=== PATIENT | male | born 1990 | race Two or more races ===

== ENCOUNTER 2017-12-24 11:30 | Emergency (ER) | payer OTHER ==
[~2017-12-24] VITALS: Ht 175.3 cm; Wt 77.1 kg
[2017-12-24] MEDS ORDERED: KETOROLAC TROMETHAMINE INJ 60 MG/2 ML VIAL IM ONE (13:00)
--- NOTE | 2017-12-24 13:01 | NUR ---
PT REFUSED PAIN MEDICINE. JOSIAH FONG NOTIFIED
[2017-12-24 13:21] LABS: APPEARANCE,URINE Clear (CLEAR); BILIRUBIN,URINE Negative (NEGATIVE); BLOOD, URINE Large Ery/uL (NEGATIVE); COLOR,URINE Yellow (YELLOW); KETONES,URINE Negative (NEGATIVE); LEUKOCYTE ESTERASE ,URINE Negative (NEGATIVE); NITRITE, URINE Negative (NEGATIVE); PROTEIN,URINE Trace mg/dl (NEGATIVE); UGLUCOSE Negative (NEGATIVE); UROBILINOGEN,URINE 0.2 EU/dL (0.2)
[2017-12-24 13:29] LABS: BACTERIA,URINE Few /HPF (None Seen); RBC,URINE 51-80 /HPF (0-2); SQUAMOUS EPITHELIAL CELL,UR Few /HPF (None Seen); WBC,URINE 0-2 /HPF (0-3)
[2017-12-24 13:30] LABS: MUCUS,URINE Few /LPF (None Seen)
[2017-12-24] MEDS ORDERED: CEFTRIAXONE 1 G VIAL IM ONE (13:30)
[2017-12-24] MEDS ORDERED: CEFTRIAXONE 1 G VIAL ONE (13:50)
[2017-12-24] MEDS ORDERED: LIDOCAINE /MPF 1% VIAL 5 ML VIAL ONE (13:51)
[2017-12-24] MEDS ORDERED: CEFTRIAXONE 500 MG VIAL ONE (13:52)
[2017-12-24 15:35] VITALS: BP 128/70
--- NOTE | 2017-12-24 15:36 | NUR ---
Patient discharged to home in stable condition. Written and verbal after care instructions given. Patient verbalizes understanding of instruction.
== END 2017-12-24 15:35 | disposition home or self-care (01) ==
LOC: ER 11:31 → EDBD 11:31 → ER 15:35
DX: N45.1 Epididymitis (principal); K40.90 Unilateral inguinal hernia, without obstruction or gangrene, not specified as recurrent
CPT/HCPCS: 76870-TC; 81000-TC; 87491; 87591; A4606; J0696; J3490; Z7610